=== PATIENT | female | born 1940 | race African-American/Black ===

== ENCOUNTER 2021-11-03 22:23 | Observation (INO) ==
[2021-11-04 02:49] LABS: Glucose,Urine (UA) Negative (Negative); Ketones,Urine Negative (Negative); Nitrite,Urine Negative (Negative); Protein,Urine 100 mg/dL (Negative); Urine Appearance Cloudy (Clear); Urine Color Yellow (Yellow); Urine Specific Gravity 1.025 (1.001-1.035); Urine pH 5.5 (4.5-8.0)
[2021-11-04 02:50] LABS: Bilirubin,Urine Small mg/dL (Negative); Blood, Urine Small mg/dL (Negative); Urine Urobilinogen 0.2 eU/dL (<2.0)
[2021-11-04 02:56] LABS: Bacteria,Urine Many /HPF (Few); Squamous Epithelial Cell,Urine Rare /HPF (0-10)
[2021-11-04] MEDS ORDERED: cefTRIAXone 1,000 MG in SODIUM CHLORIDE 0.9% 100 ML IV STA (03:15)
[2021-11-04 03:24] LABS: Basophils % 0.2 % (0.0-0.8); Eosinophils # 0.1 10*3/uL (0.0-0.87); Eosinophils % 1.3 % (0.00-10.9); Hemoglobin 10.5 GM/DL (12.0-16.0); Immature Granulocytes % 0.4 %; Immature Granulocytes Absolute 0.04 #; Lymphocytes # 2.5 10*3/uL (1.4-4.0); Lymphocytes % 25.6 % (21.3-54.2); Monocytes # 1.1 10*3/uL (0.11-0.8); Monocytes % 11.1 % (1.7-12.7); Neutrophils % 61.4 % (38.7-73.9); Platelet Count 361 T/CUMM (130-400); Red Blood Count 4.07 MC/CUMM (3.8-5.5); Red Cell Distribution Width 16.9 % (9.3-17.3); White Blood Count 9.8 T/CUMM (4-12)
[2021-11-04 03:53] LABS: Alanine Aminotransferase 19 U/L (13-56); Albumin 3.1 G/DL (3.4-5.0); Alkaline Phosphatase 74 U/L (45-117); Aspartate Amino Transferase 16 U/L (0-37); Bilirubin,Total < 0.39 MG/DL (0.20-1.00); Blood Urea Nitrogen 23 MG/DL (7-18); Calcium 8.5 MG/DL (8.5-10.1); Carbon Dioxide 30 MMOL/L (21-32); Chloride 110 MMOL/L (98-107); Glucose 161 MG/DL (74-106); Osmolality,Calculated 292.8 MOS/KG (273-304); Potassium 3.5 MMOL/L (3.5-5.1); Sodium 144 MMOL/L (136-145)
[2021-11-04 03:59] LABS: Free T4 (Free Thyroxine) 1.12 NG/DL (0.76-1.46); Thyroid Stimulating Hormone 0.991 uIU/ml (0.358-3.74)
[2021-11-04] MEDS ORDERED: ONDANSETRON 4 MG/2 ML VIAL IV PRN (04:47)
[2021-11-04] MEDS ORDERED: ACETAMINOPHEN 325 MG TABLET PO PRN (04:47)
[2021-11-04] MEDS ORDERED: hydrALAZINE 20 MG/1 ML VIAL IV PRN (04:47)
[2021-11-04] MEDS ORDERED: GLUCAGON 1 MG VIAL IM PRN (04:47)
[2021-11-04] MEDS ORDERED: DEXTROSE 10% 250 ML BAG IV PRN (05:01)
[2021-11-04] MEDS: LACTATED RINGERS 1,000 ML IV SCH ×2 (05:20→18:53)
[2021-11-04] MEDS ORDERED: cloNIDine 0.1 MG TABLET PO PRN (05:58)
[2021-11-04] MEDS: INSULIN LISPRO 100 UNIT/ML SUBCUT SCH ×3 (08:01→21:30)
[2021-11-04] MEDS: ASPIRIN EC 81 MG TABLET PO SCH (09:01)
[2021-11-04] MEDS: NEBIVOLOL 5 MG TABLET PO SCH (09:01)
[2021-11-04] MEDS: PANTOPRAZOLE 40 MG TABLET PO SCH (09:01)
[2021-11-04] MEDS: MONTELUKAST 10 MG TABLET PO SCH (21:30)
[2021-11-04] MEDS: ENOXAPARIN 40 MG/0.4 ML SYRINGE SUBCUT SCH (21:30)
[2021-11-05] MEDS: LACTATED RINGERS 1,000 ML IV SCH ×2 (01:59→18:29)
[2021-11-05] MEDS: cefTRIAXone 1,000 MG in SODIUM CHLORIDE 0.9% 100 ML IV SCH (04:03)
[2021-11-05 05:40] LABS: Basophils % 0.2 % (0.0-0.8); Eosinophils # 0.3 10*3/uL (0.0-0.87); Eosinophils % 3.8 % (0.00-10.9); Hematocrit 31.8 VOL% (35.7-47.0); Hemoglobin 9.5 GM/DL (12.0-16.0); Immature Granulocytes % 0.4 %; Immature Granulocytes Absolute 0.03 #; Lymphocytes # 2.6 10*3/uL (1.4-4.0); Lymphocytes % 30.9 % (21.3-54.2); Mean Corpuscular HGB Conc 29.9 GM/DL (32-36); Mean Corpuscular Volume 85.7 FL (87-102); Mean Platelet Volume 10.8 FL (9.6-12.0); Monocytes # 1.3 10*3/uL (0.11-0.8); Monocytes % 15.1 % (1.7-12.7); Neutrophils % 49.6 % (38.7-73.9); Platelet Count 258 T/CUMM (130-400); Red Blood Count 3.71 MC/CUMM (3.8-5.5); Red Cell Distribution Width 17.1 % (9.3-17.3); White Blood Count 8.5 T/CUMM (4-12)
[2021-11-05 05:56] LABS: Calcium 8.5 MG/DL (8.5-10.1); Potassium 3.5 MMOL/L (3.5-5.1)
[2021-11-05] MEDS: INSULIN LISPRO 100 UNIT/ML SUBCUT SCH ×4 (08:11→21:29)
[2021-11-05] MEDS: OLMESARTAN 20 MG TABLET PO SCH (09:32)
[2021-11-05] MEDS: cloNIDine 0.1 MG TABLET PO SCH ×2 (09:32→16:15)
[2021-11-05] MEDS: ASPIRIN EC 81 MG TABLET PO SCH (09:32)
[2021-11-05] MEDS: NEBIVOLOL 5 MG TABLET PO SCH (09:32)
[2021-11-05] MEDS: PANTOPRAZOLE 40 MG TABLET PO SCH (09:32)
[2021-11-05] MEDS: ENOXAPARIN 40 MG/0.4 ML SYRINGE SUBCUT SCH (21:29)
[2021-11-05] MEDS: MONTELUKAST 10 MG TABLET PO SCH (21:29)
[2021-11-06] MEDS: cloNIDine 0.1 MG TABLET PO SCH ×2 (01:49→09:03)
[2021-11-06] MEDS: cefTRIAXone 1,000 MG in SODIUM CHLORIDE 0.9% 100 ML IV SCH (04:35)
[2021-11-06 06:17] LABS: Alanine Aminotransferase 17 U/L (13-56); Albumin 2.5 G/DL (3.4-5.0); Alkaline Phosphatase 61 U/L (45-117); Aspartate Amino Transferase 13 U/L (0-37); Bilirubin,Total < 0.39 MG/DL (0.20-1.00); Blood Urea Nitrogen 16 MG/DL (7-18); Carbon Dioxide 26 MMOL/L (21-32); Chloride 112 MMOL/L (98-107); Glucose 117 MG/DL (74-106); Osmolality,Calculated 287.8 MOS/KG (273-304); Potassium 3.8 MMOL/L (3.5-5.1); Sodium 144 MMOL/L (136-145); Total Protein 6.7 G/DL (6.4-8.2)
[2021-11-06] MEDS: LACTATED RINGERS 1,000 ML IV SCH (06:35)
[2021-11-06 07:26] LABS: Basophils % 0.5 % (0.0-0.8); Eosinophils # 0.3 10*3/uL (0.0-0.87); Hematocrit 30.4 VOL% (35.7-47.0); Hemoglobin 9.3 GM/DL (12.0-16.0); Immature Granulocytes % 0.3 %; Immature Granulocytes Absolute 0.02 #; Lymphocytes # 2.7 10*3/uL (1.4-4.0); Lymphocytes % 34.3 % (21.3-54.2); Mean Corpuscular HGB Conc 30.6 GM/DL (32-36); Mean Corpuscular Volume 86.4 FL (87-102); Mean Platelet Volume 11.2 FL (9.6-12.0); Monocytes # 0.9 10*3/uL (0.11-0.8); Monocytes % 11.6 % (1.7-12.7); Neutrophils % 49.3 % (38.7-73.9); Platelet Count 243 T/CUMM (130-400); Red Blood Count 3.52 MC/CUMM (3.8-5.5); Red Cell Distribution Width 17.2 % (9.3-17.3); White Blood Count 7.8 T/CUMM (4-12)
[2021-11-06] MEDS: OLMESARTAN 20 MG TABLET PO SCH (09:03)
[2021-11-06] MEDS: NEBIVOLOL 5 MG TABLET PO SCH (09:03)
[2021-11-06] MEDS: PANTOPRAZOLE 40 MG TABLET PO SCH (09:03)
[2021-11-06] MEDS: ASPIRIN EC 81 MG TABLET PO SCH (09:04)
[2021-11-06] MEDS: INSULIN LISPRO 100 UNIT/ML SUBCUT SCH (10:33)
[2021-11-06 12:55] VITALS: BP 145/76
== END 2021-11-06 13:25 | disposition home health service (06) ==
LOC: N.ED 22:23 → N.EDINP 22:23 → N.3E 11-04 16:32
PROVIDERS: ADMIT Family Medicine; ATTEND Family Medicine

== ENCOUNTER 2022-03-11 06:44 | Observation (INO) ==
[2022-03-11] MEDS ORDERED: HYDROmorphone 1 MG/1 ML SYRINGE IV STA (07:10)
[2022-03-11] MEDS ORDERED: ONDANSETRON 4 MG/2 ML VIAL IV STA (07:11)
[2022-03-11] MEDS ORDERED: METOPROLOL TARTRATE 5 MG/5 ML VIAL IV ONE (08:01)
[2022-03-11] MEDS ORDERED: METOPROLOL TARTRATE 5 MG/5 ML VIAL IV STA ×2 (08:01→10:18)
[2022-03-11 09:06] LABS: Basophils % 0.3 % (0.0-0.8); Bilirubin,Urine Negative (Negative); Blood, Urine Trace mg/dL (Negative); Eosinophils # 0.2 10*3/uL (0.0-0.87); Eosinophils % 2.6 % (0.00-10.9); Glucose,Urine (UA) Negative (Negative); Hematocrit 31.9 VOL% (35.7-47.0); Hemoglobin 9.8 GM/DL (12.0-16.0); Immature Granulocytes % 0.3 %; Immature Granulocytes Absolute 0.03 #; Ketones,Urine Negative (Negative); Lymphocytes # 1.8 10*3/uL (1.4-4.0); Lymphocytes % 20.9 % (21.3-54.2); Mean Corpuscular HGB Conc 30.7 GM/DL (32-36); Mean Corpuscular Volume 86.7 FL (87-102); Mean Platelet Volume 10.9 FL (9.6-12.0); Monocytes # 0.7 10*3/uL (0.11-0.8); Monocytes % 8.1 % (1.7-12.7); Neutrophils % 67.8 % (38.7-73.9); Nitrite,Urine Positive (Negative); Platelet Count 155 T/CUMM (130-400); Protein,Urine 30 mg/dL (Negative); RBC,Urine 9 /HPF (0-4); Red Blood Count 3.68 MC/CUMM (3.8-5.5); Red Cell Distribution Width 16.3 % (9.3-17.3); Squamous Epithelial Cell,Urine Occasional /HPF (0-10); Urine Appearance Cloudy (Clear); Urine Color Light Yellow (Yellow); Urine Urobilinogen 0.2 eU/dL (<2.0); White Blood Count 8.6 T/CUMM (4-12)
[2022-03-11 09:27] LABS: Albumin 2.8 G/DL (3.4-5.0); Bilirubin,Total 0.4 MG/DL (0.20-1.00); Calcium 8.8 MG/DL (8.5-10.1); Potassium 4.2 MMOL/L (3.5-5.1); Total Protein 6.9 G/DL (6.4-8.2)
[2022-03-11] MEDS ORDERED: cefTRIAXone 1,000 MG in SODIUM CHLORIDE 0.9% 100 ML IV STA (09:37)
[2022-03-11] MEDS ORDERED: MORPHINE 2 MG/1 ML SYRINGE IV PRN (10:56)
[2022-03-11] MEDS ORDERED: GLUCAGON 1 MG VIAL IM PRN (10:56)
[2022-03-11] MEDS ORDERED: DEXTROSE 10% 250 ML BAG IV PRN (10:56)
[2022-03-11] MEDS ORDERED: cefTRIAXone 1,000 MG in SODIUM CHLORIDE 0.9% 100 ML IV SCH ×2 (11:30→12:00)
[2022-03-11] MEDS: INSULIN REGULAR 100 UNIT/ML SUBCUT SCH ×3 (11:31→20:07)
[2022-03-11] MEDS: SODIUM CHLORIDE 0.9% 1,000 ML IV SCH (11:35)
[2022-03-11] MEDS: ENOXAPARIN 40 MG/0.4 ML SYRINGE SUBCUT SCH (11:35)
[2022-03-11] MEDS ORDERED: hydrALAZINE 20 MG/1 ML VIAL IV PRN (13:01)
[2022-03-11] MEDS: NEBIVOLOL 10 MG TABLET PO SCH (13:24)
[2022-03-11] MEDS: NAPROXEN 500 MG TABLET PO SCH (21:46)
[2022-03-12] MEDS: SODIUM CHLORIDE 0.9% 1,000 ML IV SCH (04:15)
[2022-03-12 05:20] LABS: Albumin 3.2 G/DL (3.4-5.0); Bilirubin,Total 0.4 MG/DL (0.20-1.00); Calcium 8.9 MG/DL (8.5-10.1); Osmolality,Calculated 283.3 MOS/KG (273-304); Potassium 3.5 MMOL/L (3.5-5.1); Total Protein 7.6 G/DL (6.4-8.2)
[2022-03-12 05:26] LABS: Basophils % 0.3 % (0.0-0.8); Eosinophils # 0.2 10*3/uL (0.0-0.87); Eosinophils % 1.9 % (0.00-10.9); Hematocrit 35.5 VOL% (35.7-47.0); Hemoglobin 10.7 GM/DL (12.0-16.0); Immature Granulocytes % 0.4 %; Immature Granulocytes Absolute 0.04 #; Lymphocytes # 1.6 10*3/uL (1.4-4.0); Lymphocytes % 15.6 % (21.3-54.2); Mean Corpuscular HGB Conc 30.1 GM/DL (32-36); Mean Platelet Volume 10.7 FL (9.6-12.0); Monocytes # 0.8 10*3/uL (0.11-0.8); Monocytes % 8.3 % (1.7-12.7); Neutrophils % 73.5 % (38.7-73.9); Platelet Count 268 T/CUMM (130-400); Red Blood Count 4.13 MC/CUMM (3.8-5.5); Red Cell Distribution Width 16.2 % (9.3-17.3); White Blood Count 10.1 T/CUMM (4-12)
[2022-03-12 05:42] LABS: Risk Ratio 3.39; Thyroid Stimulating Hormone 1.56 uIU/ml (0.358-3.74); VLDL Cholesterol 13.2 MG/DL
[2022-03-12] MEDS ORDERED: PANTOPRAZOLE 40 MG TABLET PO SCH (09:00)
[2022-03-12] MEDS ORDERED: ESCITALOPRAM 10 MG TABLET PO SCH (09:00)
[2022-03-12] MEDS ORDERED: OLMESARTAN 20 MG TABLET PO SCH (09:00)
[2022-03-12] MEDS ORDERED: ASPIRIN EC 325 MG TABLET PO SCH (09:00)
[2022-03-12] MEDS ORDERED: cefTRIAXone 1,000 MG in SODIUM CHLORIDE 0.9% 100 ML IV SCH (09:00)
[2022-03-12] MEDS: INSULIN REGULAR 100 UNIT/ML SUBCUT SCH ×2 (09:01→12:11)
[2022-03-12] MEDS: NEBIVOLOL 10 MG TABLET PO SCH (09:02)
[2022-03-12] MEDS: NAPROXEN 500 MG TABLET PO SCH (09:13)
[2022-03-12] MEDS: ENOXAPARIN 40 MG/0.4 ML SYRINGE SUBCUT SCH (09:14)
[2022-03-12 12:12] VITALS: BP 162/85
== END 2022-03-12 16:01 | disposition home health service (06) ==
LOC: N.ED 06:44 → N.EDINP 06:44 → N.2W 11:57 → N.2E 16:24
PROVIDERS: ADMIT Family Medicine; ATTEND Family Medicine